=== PATIENT | female | born 1960 | race Caucasian/White ===

== ENCOUNTER → 2024-03-30 09:49 | Outpatient (BNVA) | payer OTHER, SELFPAY | PROVIDERS: Visit Provider Physician Assistant Surgical | DX: J44.9 Chronic obstructive pulmonary disease, unspecified (principal); R91.8 Other nonspecific abnormal finding of lung field; T78.40XA Allergy, unspecified, initial encounter | CPT/HCPCS: 36415; 99205 ==

== ENCOUNTER 2024-03-30 13:05 | Outpatient (REF) | payer OTHER, SELFPAY ==
[2024-04-02 18:31] LABS: Chicken Feathers IgE 0.14 kU/L (<0.70); Rabbit Epithelium IgE <0.10 kU/L (<0.70)
== END 2024-03-30 13:06 | disposition home or self-care (01) ==
LOC: LBN 13:05
PROVIDERS: Visit Provider Physician Assistant Surgical
DX: T78.40XA Allergy, unspecified, initial encounter (principal)
CPT/HCPCS: 86003

== ENCOUNTER 2024-04-16 03:03 | Outpatient (CLI) | payer OTHER, SELFPAY ==
[2024-04-16] MEDS: Inhaler, Assist Device 1 EACH MC (11:32)
[2024-04-16] MEDS: Levalbuterol HFA 15 GM INH 4 PUFF IH (11:32)
--- NOTE | 2024-04-16 14:03 | W.PFT ---
Date of service: 04/16/24 Time of Service: 10:02 Pulmonary Function Test Result Indications: COPD Interpretation Spirometry: There is moderate airflow limitation. There is a significant bronchodialtor response. Lung Volumes: There is air trapping and hyperinflation. Diffusion Capacity: Normal diffusion Airway Pressure: Increased airways resistance Impression Moderate airflow obstruction with air trapping and a normal diffusion. This may represent COPD (chronic bronchitis) or possible asthma-COPD overlap syndrome. Clinical Correlation therefore is recommended.
== END 2024-04-16 03:04 | disposition home or self-care (01) ==
LOC: RT 03:03
PROVIDERS: Visit Provider Physician Assistant Surgical
DX: J44.9 Chronic obstructive pulmonary disease, unspecified (principal)
CPT/HCPCS: 94060; 94726; 94729

== ENCOUNTER → 2024-07-13 08:48 | Outpatient (BNVA) | payer OTHER, SELFPAY | PROVIDERS: Visit Provider Physician Assistant Surgical | DX: J44.9 Chronic obstructive pulmonary disease, unspecified (principal); R91.8 Other nonspecific abnormal finding of lung field | CPT/HCPCS: 36415; 99214 ==

== ENCOUNTER 2024-07-13 19:29 | Outpatient (REF) | payer OTHER, SELFPAY ==
[2024-07-16 17:15] LABS: Baker's Yeast, IgE <0.10 kU/L (<0.70); Banana, IgE 0.15 kU/L (<0.70); Barley, IgE <0.10 kU/L (<0.70); Beef IgE <0.10 kU/L (<0.70); Food Panel #2, IgE 0.22 kU/L (<0.70); Grape IgE 0.13 kU/L (<0.70); Milk, IgE <0.10 kU/L (<0.70); Soybean IgE <0.10 kU/L (<0.70); Whey, IgE <0.10 kU/L (<0.70)
[2024-07-16 17:26] LABS: Ginger IgE <0.10 kU/L (<0.70); Mouse Serum Protein IgE <0.10 kU/L (<0.70)
[2024-07-20 09:44] LABS: Coffee IgE <0.10 kU/L (<0.35)
== END 2024-07-13 19:30 | disposition home or self-care (01) ==
LOC: LBN 19:29
PROVIDERS: PCP Physician Assistant Surgical; Visit Provider Physician Assistant Surgical
DX: J45.909 Unspecified asthma, uncomplicated (principal); Z87.891 Personal history of nicotine dependence; J44.9 Chronic obstructive pulmonary disease, unspecified; R91.8 Other nonspecific abnormal finding of lung field
CPT/HCPCS: 86003

== ENCOUNTER 2024-09-09 02:57 | Outpatient (CLI) | payer OTHER, SELFPAY ==
--- NOTE | 2024-09-09 08:18 | DI.CTLCSR_ITS ---
Exam(s) CT CHEST LUNG CANCER SCREEN EXAM: CT CHEST LUNG CANCER SCREEN CLINICAL HISTORY: Screening for lung cancer,FORMER SMOKER, Z87.891 TECHNIQUE: Imaging Protocol: Axial computed tomography images with coronal and sagittal reformatted images were created and reviewed. Low dose screening protocol. COMPARISON: Images from CT Thorax LDCT for CA Screen from 01/20/2023 [facility]. No rep ort available. FINDINGS: Tracheobronchial tree: No bronchiectasis or mucus plugging. Mediastinum and [place]: No dominant adenopathy or fluid collection. Pulmonary parenchyma: No consolidation or dominant measurable mass. Mild atelectasis inferior right middle lobe and lingula. Mild emphysematous changes. No significant interstitial changes. Lung Nodules: Stable 6 millimeter nodule right upper lobe. Stable 3 x 6 millimeter nodule left upper lobe. Pleura: No effusion. No pneumothorax. Heart: The heart is not dilated. No coronary artery calcifications are seen. No pericardial effusion. Aorta: Thoracic aorta non-dilated. Mild atherosclerotic changes. Upper abdomen: Unremarkable. Bones: Unremarkable for age. Soft Tissues: Unremarkable. IMPRESSION: Stable small right and left upper lobe nodules. No suspicious pulmonary nodules. Lung RADS Cat 2 - Benign Appearance / Behavior: Nodules with a very low likelihood of becoming a clin ically active cancer due to size or lack of growth Lung-RADS 1.0 CATEGORIES: Category 0 - Prior chest CT exam(s) being located for comparison. Category 1 - Annual screening in 12 months. No nodules or definitely benign nodules. Category 2 - Annual screening in 12 months. Benign appearance. Nodules with low likelihood of becomin g active cancer. Category 3 - 6-month follow-up. Probably benign. Short-term follow-up suggested. Nodules with low lik elihood of becoming active cancer. Category 4A - 3-month follow-up and CT/PET if >8 mm in size. Suspicious finding. Findings which requi re additional testing. Category 4B - Findings which require additional testing and tissue sampling. Category 4X - Category 3 or 4 nodules with additional features or imaging findings that increases the suspicion of malignancy. Modifier S- Potentially clinically significant findings (non lung cancer) RADIATION DOSE DELIVERED: !Error Total DLP DATA REPOSITORY: All CT scans at this facility are submitted to the National Radiology Data Registry (NRDR) Dose Index Registry (DIR) with the [employer] ([employer]). RADIATION OPTIMIZATION: All CT scans at this facility use at least one of these dose optimization te chniques: automated exposure control; mA and/or kV adjustment per patient size (includes targeted exa ms where dose is matched to clinical indication); or iterative reconstruction.
== END 2024-09-09 03:17 ==
LOC: DI 02:58
PROVIDERS: PCP Physician Assistant Surgical; Visit Provider Physician Assistant Surgical
DX: Z87.891 Personal history of nicotine dependence (principal); Z12.2 Encounter for screening for malignant neoplasm of respiratory organs; R91.8 Other nonspecific abnormal finding of lung field
CPT/HCPCS: 71271

== ENCOUNTER → 2024-10-11 10:06 | Outpatient (BNVA) | payer OTHER, SELFPAY | PROVIDERS: PCP Physician Assistant Surgical; Visit Provider Physician Assistant Surgical | DX: J44.9 Chronic obstructive pulmonary disease, unspecified (principal); R91.8 Other nonspecific abnormal finding of lung field | CPT/HCPCS: 36415; 99214 ==

== ENCOUNTER 2024-10-11 17:09 | Outpatient (REF) | payer OTHER, SELFPAY ==
[2024-10-11 15:47] LABS: Abs Immature Grans 0.04 10^3/uL (0.0-0.06); Absolute Basophil Count 0.04 10^3/uL (0.0-0.2); Absolute Eosinophil Count 0.23 10^3/uL (0.0-0.7); Absolute Lymphocyte Count 2.04 10^3/uL (1.2-3.4); Absolute Monocyte Count 0.78 10^3/uL (0.1-0.8); Absolute Neutrophil Count 4.15 10^3/uL (1.2-6.7); Basophils % 0.5 %; Eosinophils % 3.2 %; HCT 42.1 % (36.0-46.0); HGB 14.2 g/dL (11.2-15.7); Immature Grans % 0.5 %; MCH 30.1 pg (27.0-33.0); MCHC 33.7 % (32.0-36.0); MCV 89 fL (80-95); MPV 12.8 fL (8.0-11.0); Monocytes % 10.7 %; Neutrophils % 57.1 %; Platelet Count 231 10^3/uL (130-400); RBC 4.72 10^6/uL (3.93-5.22); RDW 14.4 % (11.7-14.6); RDW-SD 46.8 fL; WBC 7.28 10^3/uL (4.4-10.8)
[2024-10-11 22:50] LABS: IgE 278 IU/mL (<158)
== END 2024-10-11 17:10 | disposition home or self-care (01) ==
LOC: LBN 17:09
PROVIDERS: PCP Physician Assistant Surgical; Visit Provider Physician Assistant Surgical
DX: R91.8 Other nonspecific abnormal finding of lung field (principal); J44.9 Chronic obstructive pulmonary disease, unspecified; J45.909 Unspecified asthma, uncomplicated
CPT/HCPCS: 82785; 85025

== ENCOUNTER → 2025-05-12 14:02 | Outpatient (BNVA) | payer MEDICARE, SELFPAY | PROVIDERS: PCP Physician Assistant Surgical; Referring Provider Physician Assistant Surgical; Visit Provider Physician Assistant Surgical | DX: J44.9 Chronic obstructive pulmonary disease, unspecified (principal); R91.8 Other nonspecific abnormal finding of lung field; Z87.891 Personal history of nicotine dependence | CPT/HCPCS: 99214 ==

== ENCOUNTER → 2025-09-12 02:21 | Outpatient (CLI) | payer MEDICARE, SELFPAY ==
--- NOTE | 2025-09-12 08:15 | DI.CTLCSR_ITS ---
Exam(s) CT CHEST LUNG CANCER SCREEN EXAM: CT CHEST LUNG CANCER SCREEN CLINICAL HISTORY: Screening for lung cancer, former tobacco use, Z87.891. TECHNIQUE: Imaging Protocol: Low Dose Technique CONTRAST MATERIAL: None COMPARISON: CT CT CHEST LUNG CANCER SCREEN from 09/09/2024 FINDINGS: CHEST: LUNGS: Previously described 5 mm right upper lobe nodule remains unchanged. The previously described smaller nodule in the apical posterior segment of the left upper lobe is also unchanged. There are no new lung nodules evident. No pleural effusions. There is some atelectasis in the lung bases again noted. MEDIASTINUM: There is no obvious hilar nor mediastinal adenopathy. CARDIAC: Heart size is normal. There is no pericardial effusion.Caliber of the thoracic aorta is within normal limits. OTHER: No adrenal masses. Spleen size normal. No ascites evident. OSSEOUS: No fractures. No significant osseous lesions.. IMPRESSION: 1. Stable small right upper and left upper lobe nodules, 1 on each side. Unchanged. 2. No new nodules, new infiltrates, nor pleural effusions. No intrathoracic adenopathy. 3. Lung RADS Cat 2 - Benign Appearance / Behavior: Nodules with a very low likelihood of becoming a clinically active cancer due to size or lack of growth Lung-RADS 1.0 CATEGORIES: Category 0 - Prior chest CT exam(s) being located for comparison. Category 1 - Annual screening in 12 months. No nodules or definitely benign nodules. Category 2 - Annual screening in 12 months. Benign appearance. Nodules with low likelihood of becoming active cancer. Category 3 - 6-month follow-up. Probably benign. Short-term follow-up suggested. Nodules with low likelihood of becoming active cancer. Category 4A - 3-month follow-up and CT/PET if >8 mm in size. Suspicious finding. Findings which require additional testing. Category 4B - Findings which require additional testing and tissue sampling. Category 4X - Category 3 or 4 nodules with additional features or imaging findings that increases the suspicion of malignancy. Modifier S- Potentially clinically significant findings (non lung cancer) RADIATION DOSE DELIVERED: 33.33mGy.cm Total DLP DATA REPOSITORY: All CT scans at this facility are submitted to the National Radiology Data Registry (NRDR) Dose Index Registry (DIR) with the [employer] ([employer]). RADIATION OPTIMIZATION: All CT scans at this facility use at least one of these dose optimization techniques: automated exposure control; mA and/or kV adjustment per patient size (includes targeted exams where dose is matched to clinical indication); or iterative reconstruction.
== END ==
PROVIDERS: PCP Physician Assistant Surgical; Visit Provider Physician Assistant Surgical
DX: Z12.2 Encounter for screening for malignant neoplasm of respiratory organs (principal); Z87.891 Personal history of nicotine dependence; R91.1 Solitary pulmonary nodule
CPT/HCPCS: 71271